=== PATIENT | male | born 1965 | race Caucasian/White ===

== ENCOUNTER 2017-09-22 03:21 | Emergency (ER) | payer OTHER ==
[2017-09-22] MEDS ORDERED: ACETAMINOPHEN TAB 500 MG TAB PO STA (03:40)
[2017-09-22] MEDS ORDERED: DEXAMETHASONE SOD PHOSPHATE 10 MG/ML 1 ML VIAL IV STA (03:42)
[2017-09-22] MEDS ORDERED: fentaNYL (PF) 50 MCG/ML 2 ML AMP IV PRN (03:43)
--- NOTE | 2017-09-22 03:47 | ED ---
Back Pain HPI - General Chief Complaint: Back Pain/Injury Stated Complaint: back pain Time Seen by Provider: 09/22/17 03:32 Source: patient Limitations: no limitations - History of Present Illness Initial Comments: 51 years old male he was at work and he is trying to move things around in the cooler been over to lift heavy object that triggered the pain on the right lower back it travels down his [place] to the posterior right proximal thigh. He denies any fall or any trauma he denies any chronic back problem he denies any loss of control of bowels or bladder function. Headaches no chest pain or shortness of breath no abdominal pain no frequency urgency dysuria no weakness of her lower extremities - Related Data Home Medications Medication Instructions Recorded Confirmed Albuterol Inhaler [Ventolin 1 - 2 puff INHALATION Q6HR PRN 04/06/15 09/22/17 Inhaler] Previous Rx's Medication Instructions Recorded oxyCODONE HCL/ACETAMINOPHEN 1 tab PO Q6HR PRN #10 tab 09/22/17 [Percocet 5-325 mg] predniSONE 50 mg PO DAILY #5 tablet 09/22/17 Allergies Allergy/AdvReac Type Severity Reaction Status Date / Time codeine Allergy Nausea & Verified 09/22/17 03:30 Vomiting erythromycin base Allergy Nausea & Verified 09/22/17 03:30 [Erythromycin Base] Vomiting-Hives levofloxacin Allergy Nausea & Verified 09/22/17 03:30 Vomiting & Hives naproxen Allergy Nausea & Verified 09/22/17 03:30 Vomiting Review of Systems ROS Statement: Those systems with pertinent positive or pertinent negative responses have been documented in the HPI. ROS Other: All systems not noted in ROS Statement are negative. Past Medical History Past Medical History: Asthma Additional Past Medical History / Comment(s): Liver nodule found on 03/25/2014 by surgeon- still watching- see MRI done 02/2015, pt states MRI done 2014- shows cyst on lt kidney, loose stools 5-6 x a day-umbilical hernia, History of Any Multi-Drug Resistant Organisms: None Reported Past Surgical History: Appendectomy, Hernia Repair, Orthopedic Surgery Additional Past Surgical History / Comment(s): Hernia x 2 -abdominal- states has mesh in, CTR Lt Wrist & cyst removed also, COLONOSCOPY AND EGD 04/08/15 Past Anesthesia/Blood Transfusion Reactions: Postoperative Nausea & Vomiting ( PONV) Past Psychological History: No Psychological Hx Reported Smoking Status: Current every day smoker Past Alcohol Use History: Occasional Past Drug Use History: None Reported - Past Family History Father Family Medical History: Diabetes Mellitus Mother History Unknown: Yes General Exam - General Exam Comments Initial Comments: General: The patient is awake and he is in was moderate to severe distress Skin: Skin is warm and dry and no rashes or lesions are noted. Eye: Pupils are equal, round and reactive to light, extra-ocular movements are intact; there is normal conjunctiva bilaterally. Ears, nose, mouth and throat: There are moist mucous membranes and no oral lesions. Neck: The neck is supple, there is no tenderness or JVD. Cardiovascular: There is a regular rate and rhythm. No murmur, rub or gallop is appreciated. Respiratory: To auscultation bilateral, no wheezing no rhonchi no distress respiratory landry noticed Gastrointestinal: Soft, non-distended, non-tender abdomen without masses or organomegaly noted. There is no rebound or guarding present. Bowel sounds are unremarkable. Back: There is tenderness over the L4 and L5 as well as on the right paraspinal area is unable to lay down to do the straight leg raise test at this point in deep tendon reflexes are within normal range Musculoskeletal: Normal ROM, no tenderness, There is no pedal edema. There is no calf tenderness or swelling. No cords were appreciated. Neurological: CN II-XII intact, Cranial nerves III through XII are intact. There are no obvious motor or sensory deficits. Coordination appears grossly intact. Speech is normal. Psychiatric: Cooperative, appropriate mood & affect, normal judgment. Limitations: no limitations Course Vital Signs 09/22/17 03:27 Temperature 98.3 F Pulse Rate 80 Respiratory 18 Rate Blood Pressure 161/90 O2 Sat by Pulse 100 Oximetry Patient is reassessed at term 5:50 AM, he feels lot better he is able to ambulate he is able to lay down or standing up he be gone home mom and now Percocets he is ALLERGIC to codeine and Naprosyn considering litzy is not a candidate for [place] as well as Motrin I gave him some prednisone 50 mg daily for next 5 days, education and counseling was done to not to bend over to heavy lifting pushing or pulling instead use the knees Disposition Clinical Impression: Back pain Disposition: HOME SELF-CARE Condition: Good Additional Instructions: Follow-up with the Dr. Duke Archer in next one or 2 days or return to the ER if symptoms get worse Prescriptions: oxyCODONE HCL/ACETAMINOPHEN [Percocet 5-325 mg] 1 tab PO Q6HR PRN #10 tab PRN Reason: Pain predniSONE 50 mg PO DAILY #5 tablet Is patient prescribed a controlled substance at d/c from ED?: Yes If prescribed controlled substance>3 days was MAPS reviewed?: No When asked, does pt state using other controlled substances?: No Referrals: None,Stated [Primary Care Provider] - 1-2 days
--- NOTE | 2017-09-22 04:51 | XR ---
EXAM: XR Lumbar Spine, 4 or 5 Views CLINICAL HISTORY: ITS.REASON XR Reason: Pain TECHNIQUE: Frontal, lateral and oblique views of the lumbar spine. COMPARISON: No relevant prior studies available. FINDINGS: Vertebrae: Mild endplate changes at L3-S1. No acute fracture. Normal alignment. Disc spaces: See above. Mild narrowing of the L4-5 and L5-S1 disc space Soft tissues: Unremarkable. IMPRESSION: No acute bony abnormality. Mild lumbar spondylosis
[2017-09-22 06:22] VITALS: BP 148/83; PULSE 98; RESP 16; TEMP 98.1
== END 2017-09-22 06:21 | disposition home or self-care (01) ==
LOC: EC 03:21
DX: M54.5 Low back pain (principal); F17.200 Nicotine dependence, unspecified, uncomplicated; Z88.5 Allergy status to narcotic agent; Z88.1 Allergy status to other antibiotic agents; Z88.6 Allergy status to analgesic agent
CPT/HCPCS: 72110; 99283; 96374; 96375; J1100; J3010

== ENCOUNTER 2018-10-26 21:24 | Emergency (ER) | payer OTHER ==
[2018-10-26 21:32] VITALS: RESP 18
[2018-10-26 22:27] LABS: Basophils # (A) 0.1 k/uL (0-0.2); Basophils % (A) 1 %; Eosinophils # (A) 0.3 k/uL (0-0.7); Eosinophils % (A) 2 %; HCT 51.7 % (39.0-53.0); HGB 16.7 gm/dL (13.0-17.5); Lymphocytes # (A) 2.9 k/uL (1.0-4.8); Lymphocytes % (A) 23 %; MCH 30.7 pg (25.0-35.0); MCHC 32.3 g/dL (31.0-37.0); MCV 95.1 fL (80.0-100.0); Mean Platelet Volume 8.3; Monocytes # (A) 0.7 k/uL (0-1.0); Monocytes % (A) 5 %; Neutrophils # (A) 8.6 k/uL (1.3-7.7); Neutrophils % (A) 68 %; Platelet Count 244 k/uL (150-450); RBC 5.44 m/uL (4.30-5.90); RDW 12.7 % (11.5-15.5); WBC 12.6 k/uL (3.8-10.6)
--- NOTE | 2018-10-26 22:27 | ED ---
Chest Pain HPI - General Chief Complaint: Chest Pain Stated Complaint: Chest pain Time Seen by Provider: 10/26/18 21:38 Source: patient Mode of arrival: ambulatory Limitations: no limitations - History of Present Illness Initial Comments: This patient is a 53-year-old man who presents to be evaluated for pain near the left axilla that seems to radiate to his left arm. The patient states this been going on for a week, and he was seen at the [facility] in [place] for this same issue nearly a week ago. He states that they told him that it was not his heart and given medication but the pain has not improved. The patient states that the pain is constant, aching, moderate intensity. He states that it is relieved if he raises his left arm above his head. The pain is somewhat worse if he rests the arm down by his side. The patient has not had any anginal symptoms coming. No dyspnea, diaphoresis, nausea or vomiting, palpitations, lightheadedness or syncope. The patient states that it feels like he pinched a nerve. MD Complaint: chest pain Onset/Timin -: week(s) Onset: during rest Pain Location: left chest Pain Radiation: LUE Severity: moderate Quality: aching Consistency: constant Improves With: other (Putting his arm above his head) Worsens With: other (Lowering his arm against the side) Treatments Prior to Arrival: none - Related Data Home Medications Medication Instructions Recorded Confirmed Aspirin/Acetaminophen/Caffeine 1 - 2 tab PO DAILY PRN 10/26/18 10/26/18 [Excedrin Migraine Caplet] Allergies Allergy/AdvReac Type Severity Reaction Status Date / Time codeine Allergy Nausea & Verified 10/26/18 22:27 Vomiting erythromycin base Allergy Nausea & Verified 10/26/18 22:27 [Erythromycin Base] Vomiting-Hives ketorolac [From Toradol] Allergy Swelling Verified 10/26/18 22:27 levofloxacin Allergy Nausea & Verified 10/26/18 22:27 Vomiting & Hives naproxen Allergy Nausea & Verified 10/26/18 22:27 Vomiting Review of Systems ROS Statement: Those systems with pertinent positive or pertinent negative responses have been documented in the HPI. ROS Other: All systems not noted in ROS Statement are negative. Constitutional: Denies: fever, chills Respiratory: Denies: cough, dyspnea Cardiovascular: Reports: as per HPI, chest pain. Denies: palpitations, orthopnea, edema, syncope Gastrointestinal: Denies: abdominal pain, nausea, vomiting Genitourinary: Denies: dysuria, hematuria Musculoskeletal: Denies: back pain, joint swelling, arthralgia Skin: Denies: rash Neurological: Denies: headache, weakness, numbness, paresthesias EKG Findings - EKG Results: EKG: interpreted by ELVIS VARGAS, sinus rhythm (Rate 80 bpm), normal axis, normal QRS, normal ST/T, no acute changes - KS, Pacemaker, Normal: Normal tracing: normal tracing Past Medical History Past Medical History: Asthma Additional Past Medical History / Comment(s): Liver nodule found on 03/25/2014 by surgeon- still watching- see MRI done 02/2015, pt states MRI done 2014- shows cyst on lt kidney, loose stools 5-6 x a day-umbilical hernia, History of Any Multi-Drug Resistant Organisms: None Reported Past Surgical History: Appendectomy, Hernia Repair, Orthopedic Surgery Additional Past Surgical History / Comment(s): Hernia x 2 -abdominal- states has mesh in, CTR Lt Wrist & cyst removed also, COLONOSCOPY AND EGD 04/08/15 Past Anesthesia/Blood Transfusion Reactions: Postoperative Nausea & Vomiting (PONV) Past Psychological History: No Psychological Hx Reported Smoking Status: Current every day smoker Past Alcohol Use History: Occasional Past Drug Use History: None Reported - Past Family History Father Family Medical History: Diabetes Mellitus Mother History Unknown: Yes General Exam Limitations: no limitations General appearance: alert, in no apparent distress Head exam: Present: atraumatic, normocephalic Eye exam: Present: normal appearance. Absent: scleral icterus, conjunctival injection ENT exam: Present: normal oropharynx Neck exam: Present: normal inspection, full ROM. Absent: tenderness, meningismus Respiratory exam: Present: normal lung sounds bilaterally, chest wall tenderness (At the anterior border of the left axilla). Absent: respiratory distress, wheezes, rales, rhonchi, stridor Cardiovascular Exam: Present: regular rate, normal rhythm, normal heart sounds. Absent: systolic murmur, diastolic murmur, rubs, gallop GI/Abdominal exam: Present: soft. Absent: distended, tenderness, guarding, rebound, rigid, mass Extremities exam: Present: normal inspection, normal capillary refill. Absent: pedal edema, calf tenderness Back exam: Present: normal inspection. Absent: vertebral tenderness Neurological exam: Present: alert. Absent: motor sensory deficit Skin exam: Present: warm, dry, intact, normal color. Absent: rash Course Vital Signs 10/26/18 10/26/18 21:28 22:30 Temperature 97.1 F L Pulse Rate 90 72 Respiratory 18 18 Rate Blood Pressure 135/82 123/81 O2 Sat by Pulse 100 96 Oximetry Chest Pain MDM - [facility] Patient's 53-year-old man with somewhat atypical left-sided axilla/chest pain. The symptoms are somewhat reproducible with palpation in the chest wall at the axillary margin. Also relieved with position. As a precaution, initial cardiac workup is negative, and given that the duration of symptoms is been approximately one week suspect that there would be elevated troponin were some EKG changes accompanying cardiac source. Even in consideration of this, I did offer to admit patient for cardiology consultation and further evaluation, the patient declines. He does agree to follow-up with cardiology as outpatient. Does agree to return for other symptoms and we discussed return parameters. Disposition Clinical Impression: Chest pain Disposition: HOME SELF-CARE Condition: Good Instructions (If sedation given, give patient instructions): Chest Pain (ED) Additional Instructions: This we discussed, follow-up with the follow-up physicians. Return should any of the symptoms we discussed develop. Is patient prescribed a controlled substance at d/c from ED?: No Referrals: Duke Archer MD [Primary Care Provider] - 1-2 days Willam Becker MD [STAFF PHYSICIAN] - 1-2 days Godfrey Liang MD [STAFF PHYSICIAN] - 1-2 days
[2018-10-26 22:36] LABS: Partial Thromboplastin Time 26.5 sec (22.0-30.0); Prothrombin Time 10.3 sec (9.0-12.0)
[2018-10-26 22:37] LABS: Albumin 4.5 g/dL (3.5-5.0); Calcium 9.7 mg/dL (8.4-10.2); Total Bilirubin 0.6 mg/dL (0.2-1.3); Total Protein 7.8 g/dL (6.3-8.2)
[2018-10-26 22:49] LABS: Amylase 49 U/L (30-110); Lipase 24 U/L (23-300)
[2018-10-26 22:57] LABS: Potassium 4.4 mmol/L (3.5-5.1)
--- NOTE | 2018-10-26 23:29 | XR ---
EXAM: XR Chest, 2 Views CLINICAL HISTORY: ITS.REASON XR Reason: Pain TECHNIQUE: Frontal and lateral views of the chest. COMPARISON: 10/07/15 x-ray IMPRESSION: Normal heart size. No consolidation or pleural effusion.
[2018-10-27 00:42] VITALS: BP 129/72; PULSE 73; TEMP 98.5
== END 2018-10-27 00:43 | disposition home or self-care (01) ==
LOC: EC 21:24
DX: R07.89 Other chest pain (principal); F17.200 Nicotine dependence, unspecified, uncomplicated; Z53.29 Procedure and treatment not carried out because of patient's decision for other reasons; Z88.1 Allergy status to other antibiotic agents; Z88.5 Allergy status to narcotic agent; Z88.6 Allergy status to analgesic agent
CPT/HCPCS: 36415; 71046; 80053; 82150; 83690; 84484; 85025; 85379; 85610; 85730; 93005; 99285

== ENCOUNTER → 2018-11-13 | Outpatient (CLI) | payer OTHER ==
--- NOTE | 2018-11-13 23:01 | MR ---
MRI CERVICAL SPINE: CLINICAL HISTORY: Neck pain per order. Headache with neck pain for 5 weeks causing pain and weakness into left arm and fingers for patient. TECHNIQUE: Multiplanar, multisequence imaging of the cervical spine is performed without IV contrast. COMPARISON: Cervical spine x-ray October 07, 2015. FINDINGS: Sagittal images of the cervical spine show the craniocervical junction to appear within nor mal limits. The cervical and upper thoracic spinal cord is normal in course, caliber, and signal. Th ere is slight grade 1 retrolisthesis of C5 on C6. The vertebral body heights are normal. There is mi ld to moderate disc space narrowing C5-C6 and C6-C7 levels posterior disc herniations appreciated on sagittal images. The bone marrow signal intensity is within normal limits in cervical spine. Area of low T1 and T2 signal superior T2 vertebra is presumed benign, can be correlated with plain films is d esired. Suspect sclerosis. Axial images show C2-C3 and C3-C4 level to appear within normal limits. Axial images at the C4-C5 level show left foraminal disc protrusion causing moderate to advanced left -sided neural foraminal narrowing axial image 33. Axial images at the C5-C6 level show broad-based right paracentral/foraminal disc protrusion facing a nterolaterally thecal sac and causing moderate to advanced right-sided neural foraminal narrowing. Axial images at the C6-C7 levels with broad-based posterior disc protrusion effacing anterior thecal sac and causing moderate to advanced bilateral neural foraminal narrowing. Axial images at C7-T1 level are felt within normal limits. IMPRESSION: Multilevel degenerative changes in the cervical spine C4-C5 through C6-C7 levels as joséai led above.
== END | disposition home or self-care (01) ==
LOC: RADMRIMAIN 15:45
PROVIDERS: ATTEND Psychiatry & Neurology Neurology
DX: M47.812 Spondylosis without myelopathy or radiculopathy, cervical region (principal)
CPT/HCPCS: 72141

== ENCOUNTER → 2019-11-17 | Outpatient (CLI) | payer MEDICARE, OTHER ==
--- NOTE | 2019-11-17 10:50 | CT ---
EXAMINATION TYPE: CT abdomen pelvis w con DATE OF EXAM: 11/17/2019 COMPARISON: CT abdomen and pelvis February 09, 2015 HISTORY: Abdominal and pelvic pain CT DLP: 2622.6 mGycm, Automated Exposure Control for Dose Reduction was Utilized. CONTRAST: CT scan of the abdomen and pelvis is performed with oral and with IV Contrast, patient injected with 100 mL of Isovue 300. FINDINGS: LUNG BASES: New Left basilar linear atelectasis. LIVER/GB: Slightly more prominent 1.9 x 1.4 cm hyperechoic area right hepatic lobe that becomes isode nse on delayed phase images. Nonspecific lesion favoring FNH versus hepatic adenoma. PANCREAS: Moderate to severe generalized fat replaced atrophy redemonstrated. SPLEEN: No significant abnormality is seen. ADRENALS: No significant abnormality is seen. KIDNEYS: Symmetric cartilage of the uptake and excretion with partially duplicated left-sided collect ing systems but no duplicated ureters. Persistent simple appearing thin-walled cyst posteriorly measu ring 2.6 x 2.2 cm axial image 40 at the mid Pole level. Occasional subcentimeter hypodense lesions sc attered throughout the right kidney redemonstrated. BOWEL: Oral contrast does not reach level of terminal ileum making evaluation of distal bowel slightl y suboptimal. Stomach is poorly distended and thus suboptimally evaluated. No suspicious small or lar ge bowel dilatation is seen. A few scattered diverticula in the distal left colon. More prominent div erticulosis in the proximal to mid sigmoid colon near some level of the anterior left pelvic zachery. There is new mild to moderate ill-defined fluid and fat stranding in the central pelvis. No well-for med fluid collection or drainable abscess. No pneumoperitoneum. PROSTATE/SEMINAL VESICLES: No gross abnormality seen. LYMPH NODES: No new greater than 1cm abdominal or pelvic lymph nodes are appreciated. Persistent lef t pelvic surgical clips with anterior left pelvic 2.1 x 1.2 cm hypoechoic area favoring small postsur gical fluid collection or seroma axial image 83 not significantly changed from 2015 study OSSEOUS STRUCTURES: No significant abnormality is seen. OTHER: Small to moderate-sized periumbilical hernia is decreased in size from prior. IMPRESSION: New mild to moderate uncomplicated acute mid sigmoid diverticulitis centered in the centr al mid pelvis. Results of study called to ordering nurse practitioner via telephone at time of dictation.
== END | disposition home or self-care (01) ==
LOC: RADCTMAIN 07:52
PROVIDERS: ATTEND Nurse Practitioner Family
DX: K57.32 Diverticulitis of large intestine without perforation or abscess without bleeding (principal); Z88.5 Allergy status to narcotic agent; Z88.1 Allergy status to other antibiotic agents
CPT/HCPCS: 74177; Q9967

== ENCOUNTER → 2019-12-16 | Outpatient (CLI) | payer MEDICARE, OTHER ==
--- NOTE | 2019-12-16 07:38 | US ---
EXAMINATION TYPE: US pelvic limited DATE OF EXAM: 12/16/2019 COMPARISON: CT [place] 2019. CLINICAL HISTORY: R10.2 PELVIC PAIN. (Male Pt) Pt states pelvic pain, more at LLQ TECHNIQUE: Transabdominal (TA). Transabdominal sonographic images of the pelvis were acquired. Bladder appeared wnl without intraluminal mass or wall thickening. Suboptimal distention noted. Rt and Lt lower quadrants scanned, LLQ scanned with valsalva maneuver at area of pt's pain/ No abnorm ality could be appreciated to account for pt's painleft groin surgical clips noted on recent CT. No new or recurrent hernia identified on CT or dynamic ultrasound. IMPRESSION: As above.
== END | disposition home or self-care (01) ==
LOC: RADUSWWP 07:02
PROVIDERS: ATTEND Internal Medicine
DX: N32.89 Other specified disorders of bladder (principal); Z98.890 Other specified postprocedural states
CPT/HCPCS: 76857

== ENCOUNTER → 2020-10-04 | Outpatient (CLI) | payer MEDICARE, OTHER ==
--- NOTE | 2020-10-04 10:21 | US ---
EXAMINATION TYPE: US scrotum with doppler. Grayscale and color Doppler Duplex imaging performed of aleisha salazar scrotum. DATE OF EXAM: 10/04/2020 COMPARISON: NONE CLINICAL HISTORY: N43.0 Encysted hydrocele, R35.1 Nocturia,N40.1. Hydrocele EXAM MEASUREMENTS: TESTICLES: Right Testicle: 4.1 x 2.3 x 3.1 cm Left Testicle: 3.9 x 2.0 x 3.3 cm EPIDIDYMIS HEAD: Right Epididymis: .5 x .8 x .7 cm Left Epididymis: .9 x .8 x 1.0 cm a few subcentimeter cystic areas seen. Doppler performed to assess for testicular vascularity; good bilateral color flow and waveforms are s een. There is no evidence of testicular torsion. Presence of hydroceles: no Presence of varicoceles: no IMPRESSION: 1. Epididymal left-sided cysts. 2. No diagnostic evidence of hydrocele.
--- NOTE | 2020-10-05 07:16 | US ---
EXAMINATION TYPE: US prostate transrectal DATE OF EXAM: 10/04/2020 COMPARISON: NONE CLINICAL HISTORY: N43.0 Encysted hydrocele, R35.1 Nocturia,N40.1. BPH This examination was performed using the transrectal probe. EXAM MEASUREMENTS: Gland Size: 4.9 x2.8 x 4.9 cm Volume: 35.2 Predicted PSA: 4.2 Actual PSA (if available):Not available The prostate gland is homogeneous. No solid or cystic masses seen. Peripheral zone is unremarkable. S eminal vesicles are symmetric and within normal limits. IMPRESSION: Mild prostate glandular enlargement. No suspicious lesion identified. Correlate predicted PSA with ac tual PSA which is not available at this time. Predicted PSA = volume x 0.12 ng/ml Calculated Volume = 0.5236 x L x W x H
== END | disposition home or self-care (01) ==
LOC: RADUSWWP 09:27
PROVIDERS: ATTEND Urology
DX: N50.3 Cyst of epididymis (principal); N40.0 Benign prostatic hyperplasia without lower urinary tract symptoms
CPT/HCPCS: 76870; 76872; 93975

== ENCOUNTER 2021-09-03 02:33 | Emergency (ER) | payer MEDICARE ==
[2021-09-03 02:43] LABS: Glucose,Whole Blood 119 mg/dL (75-99)
[2021-09-03 02:45] VITALS: BP 132/88; PULSE 87; RESP 20; TEMP 97.9
== END 2021-09-03 03:31 | disposition left against medical advice (07) ==
LOC: EC 02:33
DX: Z53.21 Procedure and treatment not carried out due to patient leaving prior to being seen by health care provider (principal); R73.09 Other abnormal glucose
CPT/HCPCS: 36415; 99499

== ENCOUNTER 2021-09-14 14:20 | Emergency (ER) | payer MEDICARE, OTHER ==
[2021-09-14 14:26] VITALS: RESP 18
[2021-09-14] MEDS ORDERED: PROPARACAINE 0.5% OPHTH DROPS 15 ML BTL RIGHT EYE STA (16:13)
[2021-09-14] MEDS ORDERED: FLUORESCEIN STRIPS 1 MG STRIP RIGHT EYE ONE (16:14)
[2021-09-14] MEDS ORDERED: ONDANSETRON ODT 4 MG TAB PO STA (16:43)
[2021-09-14] MEDS ORDERED: HYDROcodone/APAP 7.5-325MG 1 EACH TAB PO ONE (16:43)
--- NOTE | 2021-09-14 17:33 | ED ---
Eye Problem HPI - General Chief complaint: Eye Problems Stated complaint: R eye issues Time Seen by Provider: 09/14/21 15:32 Source: patient Mode of arrival: ambulatory Limitations: no limitations - History of Present Illness Initial comments: 55-year-old male with past medical history of diabetes presents emergency department from Dr. Carcamo's office. Patient was seen at [facility] on September 03 and diagnosed with shingles in the v1 distribution. The patient was started on acyclovir here however he states he can only tolerate 4 days worth of the medication as it made him feel nauseated. 4 days ago the patient's began suffering from double vision. He wanted Dr. Valdez's office today for evaluation of this. Dr. Valdez was concerned for ocular involvement of the shingles and therefore sent him directly over to the hospital. Patient states that he is able to see when he lays down. When he sits up, he reports seeing triple of everything. He denies any headache, neck pain, fevers or chills. No ocular pain. No reported confusion from family members. No other alleviating, precipitating or modifying factors - Related Data Home Medications Medication Instructions Recorded Confirmed HYDROcodone/APAP 5-325MG [[place] 1 tab PO Q6H PRN MDD 4 tabs 09/14/21 09/14/21 5-325] Omeprazole [PriLOSEC] 20 mg PO DAILY 09/14/21 09/14/21 Sildenafil Citrate [Sildenafil] 40 - 60 mg PO DAILY PRN MDD 60mg 09/14/21 09/14/21 Allergies Allergy/AdvReac Type Severity Reaction Status Date / Time codeine Allergy Nausea & Verified 09/14/21 17:01 Vomiting erythromycin base Allergy Nausea & Verified 09/14/21 17:01 [Erythromycin Base] Vomiting-Hives ketorolac [From Toradol] Allergy Swelling Verified 09/14/21 17:01 levofloxacin Allergy Nausea & Verified 09/14/21 17:01 Vomiting & Hives naproxen Allergy Nausea & Verified 09/14/21 17:01 Vomiting Review of Systems ROS Statement: Those systems with pertinent positive or pertinent negative responses have been documented in the HPI. ROS Other: All systems not noted in ROS Statement are negative. Past Medical History Past Medical History: Asthma, Diabetes Mellitus Additional Past Medical History / Comment(s): Liver nodule found on 03/25/2014 by surgeon- still watching- see MRI done 02/2015, pt states MRI done 2014- shows cyst on lt kidney, loose stools 5-6 x a day-umbilical,hernia, Shingles - 2021 History of Any Multi-Drug Resistant Organisms: None Reported Past Surgical History: Appendectomy, Hernia Repair, Orthopedic Surgery Additional Past Surgical History / Comment(s): Hernia x 2 -abdominal- states has mesh in, CTR Lt Wrist & cyst removed also, COLONOSCOPY AND EGD 04/08/15 Past Anesthesia/Blood Transfusion Reactions: Postoperative Nausea & Vomiting (PONV) Past Psychological History: No Psychological Hx Reported Smoking Status: Current every day smoker Past Alcohol Use History: Occasional Past Drug Use History: None Reported - Past Family History Father Family Medical History: Diabetes Mellitus Mother History Unknown: Yes General Exam Limitations: no limitations General appearance: alert, in no apparent distress Head exam: Present: atraumatic, normocephalic, normal inspection Eye exam: Present: PERRL, other (lateral rectus palsy of the right eye). Absent: scleral icterus, conjunctival injection, periorbital swelling, periorbital tenderness Pupils: Present: other (no dendritic lesions) ENT exam: Present: normal exam, mucous membranes moist Neck exam: Present: normal inspection. Absent: tenderness, meningismus, lymphadenopathy Respiratory exam: Present: normal lung sounds bilaterally. Absent: respiratory distress, wheezes, rales, rhonchi, stridor Cardiovascular Exam: Present: regular rate, normal rhythm, normal heart sounds. Absent: systolic murmur, diastolic murmur, rubs, gallop, clicks GI/Abdominal exam: Present: soft, normal bowel sounds. Absent: distended, tenderness, guarding, rebound, rigid Extremities exam: Present: normal inspection, full ROM, normal capillary refill. Absent: tenderness, pedal edema, joint swelling, calf tenderness Back exam: Present: normal inspection Neurological exam: Present: alert, oriented X3, CN II-XII intact Psychiatric exam: Present: normal affect, normal mood Skin exam: Present: warm, dry, intact, normal color. Absent: rash Course Vital Signs 09/14/21 09/14/21 14:22 17:45 Temperature 97.6 F 97.2 F L Pulse Rate 95 82 Respiratory 18 18 Rate Blood Pressure 136/91 132/72 O2 Sat by Pulse 98 98 Oximetry Medical Decision Making - Medical Decision Making Upon arrival patient is placed into room 17. A thorough history and physical exam was performed. Visual acuity is performed and vision is 20/40 in both eyes, 20/40 in the affected eye and 20/30 in the left eye. Patient does have notable lateral rectus palsy. Patient's eye is stained with fluorescein after proparacaine administration. No dendritic lesions are appreciated. I did call and speak with Dr. Ruiz in regards to the patient's symptoms. He recommends that the patient go over to his office at this time for evaluation. Patient agreed to this treatment. He is informed that if Dr. Ruiz is concerned, he may be sent back to the hospital for further workup. Patient agreed to this. Instructed to go straight to his office without stopping. Patient discharged in stable condition Disposition Clinical Impression: Lateral rectus palsy, Visual disturbance Disposition: HOME SELF-CARE Condition: Stable Instructions (If sedation given, give patient instructions): Blurred Vision (ED) Additional Instructions: Go directly to Dr. Ruiz's office now. Do not go home. He will evaluate your and determine whether he can treat it or if you need to come back to the hospital. [facility] [place] [address] Is patient prescribed a controlled substance at d/c from ED?: No Referrals: Rolando Harris MD [Primary Care Provider] - 1-2 days Paul Ruiz MD [STAFF PHYSICIAN] - 1-2 days Time of Disposition: 17:30
[2021-09-14 17:46] VITALS: BP 132/72; PULSE 82; TEMP 97.2
== END 2021-09-14 17:45 | disposition home or self-care (01) ==
LOC: EC 14:20
DX: H49.9 Unspecified paralytic strabismus (principal); H53.9 Unspecified visual disturbance; J45.909 Unspecified asthma, uncomplicated; E11.9 Type 2 diabetes mellitus without complications; F17.200 Nicotine dependence, unspecified, uncomplicated; Z88.5 Allergy status to narcotic agent; Z88.1 Allergy status to other antibiotic agents; Z88.6 Allergy status to analgesic agent
CPT/HCPCS: 99283

== ENCOUNTER 2021-09-26 17:48 | Inpatient (IN) | payer MEDICARE, OTHER ==
[2021-09-26] MEDS ORDERED: methylPREDNISolone SOD SUCCI 125 MG/2 ML VIAL IV STA (20:11)
[2021-09-26 20:43] LABS: Basophils # (A) 0.1 k/uL (0-0.2); Basophils % (A) 1 %; Eosinophils # (A) 0.3 k/uL (0-0.7); Eosinophils % (A) 2 %; HCT 49.2 % (39.0-53.0); Lymphocytes # (A) 3.1 k/uL (1.0-4.8); Lymphocytes % (A) 25 %; MCH 30.9 pg (25.0-35.0); MCHC 32.4 g/dL (31.0-37.0); MCV 95.3 fL (80.0-100.0); Monocytes # (A) 0.6 k/uL (0-1.0); Monocytes % (A) 5 %; Neutrophils # (A) 8.1 k/uL (1.3-7.7); Neutrophils % (A) 66 %; Platelet Count 279 k/uL (150-450); RBC 5.17 m/uL (4.30-5.90); RDW 12.8 % (11.5-15.5); WBC 12.3 k/uL (3.8-10.6)
[2021-09-26 20:57] LABS: Albumin 4.3 g/dL (3.5-5.0); Calcium 9.4 mg/dL (8.4-10.2); Potassium 4.6 mmol/L (3.5-5.1); Total Bilirubin 0.7 mg/dL (0.2-1.3); Total Protein 7.7 g/dL (6.3-8.2)
[2021-09-26] MEDS ORDERED: ACETAMINOPHEN TAB 325 MG TAB PO PRN (21:37)
[2021-09-26] MEDS ORDERED: ONDANSETRON 4 MG/2 ML VIAL IVP PRN (21:37)
[2021-09-26] MEDS ORDERED: NALOXONE 0.4 MG/ML 1 ML VIAL IV PRN (21:37)
[2021-09-26] MEDS: ACYCLOVIR SODIUM 950 MG in SODIUM CHLORIDE 0.9% 250 ML IV SCH (21:41)
--- NOTE | 2021-09-26 21:42 | ED ---
Eye Problem HPI - General Chief complaint: Eye Problems Stated complaint: Right Eye Problems Time Seen by Provider: 09/26/21 19:54 Source: patient, RN notes reviewed Mode of arrival: ambulatory Limitations: no limitations - History of Present Illness Initial comments: This is a 55-year-old male who presents to the emergency department for shingles in the right eye. 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 New, for admission to be treated with IV steroids and antiviral medication. Symptoms have been present for 3 weeks and he is noted to have a sixth nerve palsy. Patient denies any blurry vision at this time. MD chief complaint: eye pain Onset/Timin -: week(s) Location: right eye - Related Data Home Medications Medication Instructions Recorded Confirmed HYDROcodone/APAP 5-325MG [[place] 1 tab PO Q6H PRN MDD 4 tabs 09/14/21 09/26/21 5-325] Omeprazole [PriLOSEC] 20 mg PO DAILY 09/14/21 09/26/21 Sildenafil Citrate [Sildenafil] 40 - 60 mg PO DAILY PRN MDD 60mg 09/14/21 09/26/21 Gabapentin [Neurontin] 100 mg PO HS 09/26/21 09/26/21 Allergies Allergy/AdvReac Type Severity Reaction Status Date / Time erythromycin base Allergy Nausea & Verified 09/26/21 22:02 [Erythromycin Base] Vomiting-Hives ketorolac [From Toradol] Allergy Swelling Verified 09/26/21 22:02 codeine AdvReac Nausea & Verified 09/26/21 22:02 Vomiting famciclovir AdvReac Nausea & Verified 09/26/21 22:02 Vomiting & Diarrhea levofloxacin AdvReac Nausea & Verified 09/26/21 22:02 Vomiting & Hives naproxen AdvReac Nausea & Verified 09/26/21 22:02 Vomiting Review of Systems ROS Statement: Those systems with pertinent positive or pertinent negative responses have been documented in the HPI. ROS Other: All systems not noted in ROS Statement are negative. Constitutional: Denies: fever, chills Eyes: Reports: eye pain. Denies: vision change ENT: Denies: ear pain, throat pain Respiratory: Denies: cough, dyspnea Cardiovascular: Denies: chest pain, palpitations Gastrointestinal: Denies: abdominal pain, nausea, vomiting, diarrhea Genitourinary: Denies: urgency, dysuria Musculoskeletal: Denies: back pain Neurological: Denies: headache Past Medical History Past Medical History: Asthma, Diabetes Mellitus Additional Past Medical History / Comment(s): Liver nodule found on 03/25/2014 by surgeon- still watching- see MRI done 02/2015, pt states MRI done 2014- shows cyst on lt kidney, loose stools 5-6 x a day-umbilical,hernia, Shingles - 2021 History of Any Multi-Drug Resistant Organisms: None Reported Past Surgical History: Appendectomy, Hernia Repair, Orthopedic Surgery Additional Past Surgical History / Comment(s): Hernia x 2 -abdominal- states has mesh in, CTR Lt Wrist & cyst removed also, COLONOSCOPY AND EGD 04/08/15 Past Anesthesia/Blood Transfusion Reactions: Postoperative Nausea & Vomiting (PONV) Past Psychological History: No Psychological Hx Reported Smoking Status: Current every day smoker Past Alcohol Use History: Occasional Past Drug Use History: None Reported - Past Family History Father Family Medical History: Diabetes Mellitus Mother History Unknown: Yes General Exam Limitations: no limitations General appearance: alert, in no apparent distress Head exam: Present: atraumatic, normocephalic, normal inspection Eye exam: Present: other (No abduction of the right eye, consistent with 6th nerve palsy.) ENT exam: Present: other (Few scattered erythematous vesicles encroaching on the right lateral aspect of the nose.) Respiratory exam: Present: normal lung sounds bilaterally. Absent: respiratory distress, wheezes, rales, rhonchi, stridor Cardiovascular Exam: Present: regular rate, normal rhythm, normal heart sounds. Absent: systolic murmur, diastolic murmur, rubs, gallop, clicks Neurological exam: Present: alert, oriented X3, CN II-XII intact Psychiatric exam: Present: normal affect, normal mood Skin exam: Present: warm, dry, intact Course Vital Signs 09/26/21 09/26/21 17:51 23:00 Temperature 98.0 F Pulse Rate 89 74 Respiratory 16 18 Rate Blood Pressure 135/90 116/68 O2 Sat by Pulse 97 94 L Oximetry Medical Decision Making - Medical Decision Making This is a 55-year-old male who presents to the emergency department with herpes zoster ophthalmicus. Patient started on IV acyclovir and IV Solu-Medrol. Prednisolone acetate eyedrops 4 times a day also initiated. Will plan to admit patient for continued IV treatment per the recommendation of ophthalmology. This case was discussed in detail with the attending ED physician. Presentation, findings, and treatment plan discussed in detail as well. - Lab Data Result diagrams: 09/26/21 20:36 09/26/21 20:36 Lab Results 09/26/21 09/26/21 Range/Units 20:36 20:36 WBC 12.3 H (3.8-10.6) k/uL RBC 5.17 (4.30-5.90) m/uL Hgb 16.0 (13.0-17.5) gm/dL Hct 49.2 (39.0-53.0) % MCV 95.3 (80.0-100.0) fL MCH 30.9 (25.0-35.0) pg MCHC 32.4 (31.0-37.0) g/dL RDW 12.8 (11.5-15.5) % Plt Count 279 (150-450) k/uL MPV 8.0 Neutrophils % 66 % Lymphocytes % 25 % Monocytes % 5 % Eosinophils % 2 % Basophils % 1 % Neutrophils # 8.1 H (1.3-7.7) k/uL Lymphocytes # 3.1 (1.0-4.8) k/uL Monocytes # 0.6 (0-1.0) k/uL Eosinophils # 0.3 (0-0.7) k/uL Basophils # 0.1 (0-0.2) k/uL Sodium 140 (137-145) mmol/L Potassium 4.6 (3.5-5.1) mmol/L Chloride 105 (98-107) mmol/L Carbon Dioxide 26 (22-30) mmol/L Anion Gap 9 mmol/L BUN 15 (9-20) mg/dL Creatinine 1.17 (0.66-1.25) mg/dL Est GFR (CKD-EPI)AfAm 81 (>60 ml/min/1.73 sqM) Est GFR (CKD-EPI)NonAf 70 (>60 ml/min/1.73 sqM) Glucose 142 H (74-99) mg/dL Calcium 9.4 (8.4-10.2) mg/dL Total Bilirubin 0.7 (0.2-1.3) mg/dL AST 29 (17-59) U/L ALT 34 (4-49) U/L Alkaline Phosphatase 84 (38-126) U/L Total Protein 7.7 (6.3-8.2) g/dL Albumin 4.3 (3.5-5.0) g/dL Disposition Clinical Impression: Herpes zoster ophthalmicus of right eye Disposition: ADMITTED IP TO THIS HOSP
[2021-09-26] MEDS ORDERED: HYDROmorphone 1 MG/ML 1 ML SYRINGE IVP PRN (21:43)
[2021-09-26] MEDS ORDERED: HYDROcodone/APAP 5-325MG 1 EACH TAB PO PRN (21:43)
[2021-09-27] MEDS: prednisoLONE ACETATE 1% OPHTH DROPS 5 ML BTL RIGHT EYE SCH ×5 (00:22→20:57)
--- NOTE | 2021-09-27 01:33 | P.HPIM ---
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 Patient reports double vision and blurry vision denies any pain at this time he reports that shingles lesions has resolved which was involving the periorbital region of the right eye extending all the way up into the hair and scalp. He was diagnosed initially with shingles about 3 weeks ago. Per ophthalmology recommendations patient will be admitted for cycle of year and steroids Otherwise patient denies any pain denies any fevers or chills denies any trouble breathing nausea vomiting chest pain shortness of breath denies any abdominal pain changes in urinary or bowel habits He denies any similar episodes in the past denies any history of shingles Review of Systems Pertinent positives as noted in HPI. All other systems were reviewed and are negative Past Medical History Past Medical History: Asthma, Diabetes Mellitus Additional Past Medical History / Comment(s): Liver nodule found on 03/25/2014 by surgeon- still watching- see MRI done 02/2015, pt states MRI done 2014- shows cyst on lt kidney, loose stools 5-6 x a day-umbilical,hernia, Shingles 2021 History of Any Multi-Drug Resistant Organisms: None Reported Past Surgical History: Appendectomy, Hernia Repair, Orthopedic Surgery Additional Past Surgical History / Comment(s): Hernia x 2 -abdominal- states has mesh in, CTR Lt Wrist & cyst removed also, COLONOSCOPY AND EGD 04/08/15 Past Anesthesia/Blood Transfusion Reactions: Postoperative Nausea & Vomiting (PONV) Past Psychological History: No Psychological Hx Reported Smoking Status: Current every day smoker Past Alcohol Use History: Occasional Past Drug Use History: None Reported - Past Family History Father Family Medical History: Diabetes Mellitus Mother History Unknown: Yes Medications and Allergies Home Medications Medication Instructions Recorded Confirmed Type HYDROcodone/APAP 5-325MG [[place] 1 tab PO Q6H PRN MDD 4 tabs 09/14/21 09/26/21 H istory 5-325] Omeprazole [PriLOSEC] 20 mg PO DAILY 09/14/21 09/26/21 History Sildenafil Citrate [Sildenafil] 40 - 60 mg PO DAILY PRN MDD 60mg 09/14/21 09/26/21 History Gabapentin [Neurontin] 100 mg PO HS 09/26/21 09/26/21 History Allergies Allergy/AdvReac Type Severity Reaction Status Date / Time erythromycin base Allergy Nausea & Verified 09/26/21 22:02 [Erythromycin Base] Vomiting-Hives ketorolac [From Toradol] Allergy Swelling Verified 09/26/21 22:02 codeine AdvReac Nausea & Verified 09/26/21 22:02 Vomiting famciclovir AdvReac Nausea & Verified 09/26/21 22:02 Vomiting & Diarrhea levofloxacin AdvReac Nausea & Verified 09/26/21 22:02 Vomiting & Hives naproxen AdvReac Nausea & Verified 09/26/21 22:02 Vomiting Physical Exam Vitals: Vital Signs Temp Pulse Resp BP Pulse Ox 09/26/21 23:00 74 18 116/68 94 L 09/26/21 17:51 98.0 F 89 16 135/90 97 Intake and Output 09/26/21 09/26/21 09/27/21 14:59 22:59 06:59 Other: Weight 117.934 kg Constitutional: No acute distress, conversant, pleasant Eyes: Anicteric sclerae, moist conjunctiva, Pupils equal round reactive to light ENMT: NC/AT Oropharynx clear, no erythema, or exudates Neck: Supple, FROM, no masses, or JVD No carotid bruits No thyromegaly Lungs: Clear to auscultation Clear to percussion Normal respiratory effort, no accessory muscle use Cardiovascular: Heart regular in rate and rhythm, No murmurs, gallops, or rubs No peripheral edema Abdominal: Soft Nontender, no guarding, rebound or rigidity Abdomen moving with respiration Normoactive bowel sounds No hepatomegaly, No splenomegaly No palpable mass No abdominal wall hernia noted Skin: Healed shingles lesions resulting in skin discoloration over the periorbital region of the right eye otherwise Normal temperature, tone, texture, turgor Extremities: No digital cyanosis No clubbing Pedal pulses intact and symmetrical Radial pulses intact and symmetrical No calf tenderness Psychiatric: Alert and oriented to person, place and time Appropriate affect fair judgement Neuro Muscles Strength 5/5 in all 4 extremities Sensation to light touch grossly present throughout Right sixth cranial nerve palsy, otherwise Cranial nerves II-XII gross ly intact No focal sensory deficits Lymphatics: no palpable cervical or supraclavicular , or inguinal lymph nodes Results CBC & Chem 7: 09/26/21 20:36 09/26/21 20:36 Labs: Abnormal Lab Results - Last 24 Hours (Table) 09/26/21 09/26/21 Range/Units 20:36 20:36 WBC 12.3 H (3.8-10.6) k/uL Neutrophils # 8.1 H (1.3-7.7) k/uL Glucose 142 H (74-99) mg/dL Assessment and Plan Assessment: Right sixth cranial nerve palsy secondary to recent episode of shingles Management per ophthalmology recommendations with IV acyclovir and steroids Pain control Supportive care Monitor vital signs Patient denies any history of medical conditions Reports history of GERD continue with PPI Follow-up renal function patient on acyclovir DVT prophylaxis mechanical Full code Anticipated length of stay more than 2 midnights
[2021-09-27] MEDS: methylPREDNISolone SOD SUCCI 125 MG/2 ML VIAL IV SCH ×4 (03:41→20:30)
[2021-09-27] MEDS: PANTOPRAZOLE 40 MG TABLET PO SCH (06:00)
[2021-09-27] MEDS: ACYCLOVIR SODIUM 950 MG in SODIUM CHLORIDE 0.9% 250 ML IV SCH ×3 (06:25→20:56)
[2021-09-27 10:05] LABS: BUN/Creat Ratio 13.17 Ratio (12.00-20.00); Blood Urea Nitrogen 15.8 mg/dL (9.0-27.0); Calcium 9.5 mg/dL (8.7-10.3); Non-African American GFR(CKD) 68.1 (60.0-200.0); Potassium 4.7 mmol/L (3.5-5.5)
[2021-09-27 10:12] LABS: Basophils # (A) 0.01 X 10*3/uL (0.00-0.10); Basophils % (A) 0.1 %; Eosinophils # (A) 0 X 10*3/uL (0.04-0.35); Eosinophils % (A) 0 %; HCT 47.9 % (39.6-50.0); HGB 15.6 g/dL (13.0-17.0); Immature Grans, Automated 0.6 %; Lymphocytes % (A) 14.3 %; MCH 30.7 pg (27.0-32.0); MCHC 32.6 g/dL (32.0-37.0); MCV 94.3 fL (80.0-97.0); Monocytes # (A) 0.07 X 10*3/uL (0.20-1.00); Monocytes % (A) 0.8 %; NRBC Per 100 WBC 0 /100 WBCS (0.0-0.0); Neutrophils # (A) 7.06 X 10*3/uL (1.80-7.70); Neutrophils % (A) 84.2 %; Platelet Count 253 X 10*3/uL (140-440); RBC 5.08 X 10*6/uL (4.40-5.60); RDW 12.8 % (11.5-14.5); WBC 8.39 X 10*3/uL (4.50-10.00)
[2021-09-27 11:53] LABS: Glucose,Whole Blood 317 mg/dL (75-99)
[2021-09-27] MEDS: INSULIN ASPART (NovoLOG) 100 UNIT/ML VIAL SQ SCH ×3 (13:05→20:55)
[2021-09-27] MEDS ORDERED: HYDROcodone/APAP 5-325MG 1 EACH TAB PO PRN (15:27)
[2021-09-27] MEDS ORDERED: polyethylene glycoL 3350 17 GM POWD.PACK PO PRN (15:27)
--- NOTE | 2021-09-27 16:09 | P.PN ---
Subjective Progress Note Date: 09/27/21 Principal diagnosis: Blurry vision Patient was seen and examined. No acute events overnight. Patient continues to report double vision. He reports dysuria since starting acyclovir. He is also complaining that he has not had a bowel movement. He denies any chest pain, shortness breath or palpitations. No nausea or vomiting. No fever or chills. Objective - Vital Signs Vital signs: Vital Signs Temp 98.3 F 09/27/21 14:57 Pulse 94 09/27/21 14:57 Resp 18 09/27/21 14:57 BP 100/59 09/27/21 14:57 Pulse Ox 93 L 09/27/21 14:57 Intake & Output 09/26/21 09/27/21 09/27/21 18:59 06:59 18:59 Weight 117.934 kg 117.934 kg Other: Voiding Method Toilet - Exam General: [non toxic], [no distress], [appears at stated age] Derm: [warm], [dry], [shingles lesions resulting in skin discoloration over the periorbital region of the right eye] Head: [atraumatic], [normocephalic], [symmetric] Eyes: [EOMI], [no lid lag], [anicteric sclera] Mouth: [no lip lesion], [mucus membranes moist] Cardiovascular: [S1S2 reg], [no murmur] Lungs: [CTA bilateral], [no rhonchi, no rales] , [no accessory muscle use] Abdominal: [soft], [ nontender to palpation], [no guarding], [no appreciable organomegaly] Ext: [no gross muscle atrophy], [no edema], [no contractures] Neuro: [R CN 6 palsy], [no focal neuro deficits] Psych: [Alert], [oriented], [appropriate affect] - Labs CBC & Chem 7: 09/27/21 06:30 09/27/21 06:30 Labs: Abnormal Lab Results - Last 24 Hours (Table) 09/26/21 09/26/21 09/27/21 Range/Units 20:36 20:36 06:30 WBC 12.3 H (3.8-10.6) k/uL Immature Gran # 0.05 H (0.00-0.04) X 10*3/uL Neutrophils # 8.1 H (1.3-7.7) k/uL Monocytes # 0.07 L (0.20-1.00) X 10*3/uL Eosinophils # 0 L (0.04-0.35) X 10*3/uL Glucose 142 H (74-99) mg/dL POC Glucose (mg/dL) (75-99) mg/dL 09/27/21 09/27/21 Range/Units 06:30 11:52 WBC (3.8-10.6) k/uL Immature Gran # (0.00-0.04) X 10*3/uL Neutrophils # (1.3-7.7) k/uL Monocytes # (0.20-1.00) X 10*3/uL Eosinophils # (0.04-0.35) X 10*3/uL Glucose 175 H (74-99) mg/dL POC Glucose (mg/dL) 317 H (75-99) mg/dL Assessment and Plan Assessment: #Right cranial nerve palsy #Herpes zoster #Diabetes mellitus with hyperglycemia #Dysuria #Constipation Resolved: Leukocytosis Continue acyclovir and Solu-Medrol as per ophthalmology recommendations. Continue prednisolone eyedrops. Will discuss with Opthalmology duration of treatment tomorrow. Switch sliding scale to include steroids. Accu-Cheks 4 times a day with hypoglycemic precautions. Obtain urinalysis for dysuria. Milk of magnesia for constipation. DVT prophylaxis: [SCD] Discussed with: [Patient] Anticipated discharge: [2-3 days] Anticipated discharge place: [Home] A total of [35] minutes was spent on the care of this complex patient more than 50% of the time was spent in counseling and care coordination.
[2021-09-27 16:52] LABS: Glucose,Whole Blood 242 mg/dL (75-99)
[2021-09-27] MEDS: MAGNESIUM HYDROXIDE 2,400 MG/10 ML CUP PO SCH ×2 (17:34→20:57)
[2021-09-27 20:35] LABS: Glucose,Whole Blood 258 mg/dL (75-99)
[2021-09-27] MEDS ORDERED: GABAPENTIN 100 MG CAP PO SCH (21:00)
[2021-09-27 21:33] LABS: Appearance,Urine Clear (Clear); Bilirubin,Urine Negative (Negative); Blood,Urine Negative (Negative); Color,Urine Yellow; Glucose,Urine (UA) 3+ (Negative); Ketones,Urine Trace (Negative); Leukocyte Esterase,Urine Negative (Negative); Nitrite,Urine Negative (Negative); Protein,Urine Negative (Negative); Specific Gravity,Urine 1.021 (1.001-1.035); Urobilinogen,Urine <2.0 mg/dL (<2.0)
[2021-09-28] MEDS: methylPREDNISolone SOD SUCCI 125 MG/2 ML VIAL IV SCH ×2 (02:44→07:31)
[2021-09-28 03:27] LABS: Glucose,Whole Blood 210 mg/dL (75-99)
[2021-09-28 06:53] LABS: Glucose,Whole Blood 161 mg/dL (75-99)
[2021-09-28] MEDS: PANTOPRAZOLE 40 MG TABLET PO SCH (07:31)
[2021-09-28] MEDS: INSULIN ASPART (NovoLOG) 100 UNIT/ML VIAL SQ SCH ×2 (07:32→11:42)
[2021-09-28] MEDS: prednisoLONE ACETATE 1% OPHTH DROPS 5 ML BTL RIGHT EYE SCH ×2 (07:32→11:43)
[2021-09-28] MEDS: ACYCLOVIR SODIUM 950 MG in SODIUM CHLORIDE 0.9% 250 ML IV SCH (07:32)
[2021-09-28] MEDS: MAGNESIUM HYDROXIDE 2,400 MG/10 ML CUP PO SCH ×2 (07:32→11:42)
[2021-09-28 08:18] VITALS: BP 124/74; PULSE 72; RESP 16; TEMP 97.7
[2021-09-28 11:42] LABS: Glucose,Whole Blood 192 mg/dL (75-99)
--- NOTE | 2021-09-28 12:15 | P.DS ---
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 Patient reports double vision and blurry vision denies any pain at this time he reports that shingles lesions has resolved which was involving the periorbital region of the right eye extending all the way up into the hair and scalp. He was diagnosed initially with shingles about 3 weeks ago. Per ophthalmology recommendations patient will be admitted for cycle of year and steroids Otherwise patient denies any pain denies any fevers or chills denies any trouble breathing nausea vomiting chest pain shortness of breath denies any abdominal pain changes in urinary or bowel habits He denies any similar episodes in the past denies any history of shingles Patient was started on Solu-Medrol and acyclovir IV. He was also given prednisone eyedrops. He reported constipation for which she was given mag citrate and MiraLAX. He reported dysuria, urinalysis was negative for leukocyte esterase or nitrite. Patient was continuously refusing acyclovir and Solu- Medrol. He was seen and examined on 09/28/2021. Patient is requesting to be discharged home. Is advised to follow-up with his PCP within 1-2 days of discharge. Advised to follow-up with ophthalmology Dr. New within 1-2 days of discharge. All medications sent to his pharmacy. Patient verbalized understanding of the plan. This complex discharge took about 45 minutes to complete. General: [non toxic], [no distress], [appears at stated age] Derm: [warm], [dry], [shingles lesions resulting in skin discoloration over the periorbital region of the right eye] Head: [atraumatic], [normocephalic], [symmetric] Eyes: [EOMI], [no lid lag], [anicteric sclera] Mouth: [no lip lesion], [mucus membranes moist] Cardiovascular: [S1S2 reg], [no murmur] Lungs: [CTA bilateral], [no rhonchi, no rales] , [no accessory muscle use] Abdominal: [soft], [ nontender to palpation], [no guarding], [no appreciable organomegaly] Ext: [no gross muscle atrophy], [no edema], [no contractures] Neuro: [R CN 6 palsy], [no focal neuro deficits] Psych: [Alert], [oriented], [appropriate affect] Discharge Diagnosis: #Right cranial nerve palsy #Herpes zoster #Diabetes mellitus with hyperglycemia #Dysuria #Constipation Resolved: Leukocytosis Patient Condition at Discharge: Stable Plan - Discharge Summary Discharge Rx Participant: No New Discharge Prescriptions: New predniSONE See Taper PO DIRECTED #49 tab valACYclovir HCL [Valtrex] 1,000 mg PO Q8HR #42 tab prednisoLONE ACETATE 1% OPHTH [Pred Forte 1%] 1 drops RIGHT EYE QID #15 ml Continue Sildenafil Citrate 40 - 60 mg PO DAILY PRN MDD 60mg PRN Reason: 30 min prior to intercourse HYDROcodone/APAP 5-325MG [[place] 5-325] 1 tab PO Q6H PRN MDD 4 tabs PRN Reason: Pain Gabapentin [Neurontin] 100 mg PO HS Omeprazole [PriLOSEC] 20 mg PO DAILY Discharge Medication List HYDROcodone/APAP 5-325MG [[place] 5-325] 1 tab PO Q6H PRN MDD 4 tabs 09/14/21 [His tory] Omeprazole [PriLOSEC] 20 mg PO DAILY 09/14/21 [History] Sildenafil Citrate 40 - 60 mg PO DAILY PRN MDD 60mg 09/14/21 [History] Gabapentin [Neurontin] 100 mg PO HS 09/26/21 [History] predniSONE See Taper PO DIRECTED #49 tab 09/28/21 [Rx] prednisoLONE ACETATE 1% OPHTH [Pred Forte 1%] 1 drops RIGHT EYE QID #15 ml 09/28/21 [Rx] valACYclovir HCL [Valtrex] 1,000 mg PO Q8HR #42 tab 09/28/21 [Rx] Follow up Appointment(s)/Referral(s): Rolando Harris MD [Primary Care Provider] - 1-2 days Andrew New MD [STAFF PHYSICIAN] - 1-2 Days Activity/Diet/Wound Care/Special Instructions: Diet: Diabetic FU with PCP within 1-2 days of DC. FU with Opthalmology Dr. New within 1-2 days of discharge. Take all medications as advised. Discharge Disposition: HOME SELF-CARE
== END 2021-09-28 12:40 | disposition home or self-care (01) | DRG 125 ==
LOC: EC 17:48 → 5NMEDONC 22:01 → 4SSUR 09-27 02:55
PROVIDERS: ADMIT Internal Medicine; ATTEND Internal Medicine
DX: B02.30 Zoster ocular disease, unspecified (principal); H49.21 Sixth [abducent] nerve palsy, right eye; E11.65 Type 2 diabetes mellitus with hyperglycemia; D72.829 Elevated white blood cell count, unspecified; K59.00 Constipation, unspecified; R30.0 Dysuria; K21.9 Gastro-esophageal reflux disease without esophagitis; J45.909 Unspecified asthma, uncomplicated; N28.1 Cyst of kidney, acquired; K76.89 Other specified diseases of liver; F17.210 Nicotine dependence, cigarettes, uncomplicated; Z83.3 Family history of diabetes mellitus; Z88.5 Allergy status to narcotic agent; Z88.1 Allergy status to other antibiotic agents; Z87.19 Personal history of other diseases of the digestive system; Z88.8 Allergy status to other drugs, medicaments and biological substances
CPT/HCPCS: 36415; 80048; 80053; 81003; 85025; 96365; 96366; 96375; 96376; 99284

== ENCOUNTER 2022-05-01 10:33 | Day surgery (SDC) | payer OTHER ==
[~2022-05-01 10:33] MED LIST: LACTATED RINGERS 1,000 ML IV SCH; LIDOCAINE 1% (10MG/ML) FOR IV START INTRADERMA PRN
[2022-05-01 11:15] VITALS: BP 127/83; PULSE 68; RESP 18; TEMP 98
== END 2022-05-01 11:24 | disposition home or self-care (01) ==
LOC: ORWHC2ENDO 10:33
PROVIDERS: ATTEND Surgery
DX: K62.5 Hemorrhage of anus and rectum (principal)

== ENCOUNTER 2022-05-02 03:48 | Emergency (ER) | payer OTHER ==
[2022-05-02 04:05] VITALS: PULSE 76; RESP 16; TEMP 98.6
[2022-05-02 04:11] LABS: Glucose,Whole Blood 102 mg/dL (70-110)
[2022-05-02] MEDS ORDERED: ONDANSETRON 4 MG/2 ML VIAL IVP STA (04:11)
[2022-05-02] MEDS ORDERED: SODIUM CHLORIDE 0.9% 1,000 ML IV STA ×2 (04:11)
[2022-05-02] MEDS ORDERED: SODIUM CHLORIDE 0.9% 500 ML 500 ML IV STA (04:11)
[2022-05-02] MEDS ORDERED: MORPHINE SULFATE 4 MG/ML SYRINGE IVP STA (04:12)
--- NOTE | 2022-05-02 04:13 | ED ---
Nausea/Vomiting/Diarrhea HPI - General Chief complaint: Headache Stated complaint: Headache, Vomiting Time Seen by Provider: 05/02/22 04:09 Source: patient, RN notes reviewed, old records reviewed Mode of arrival: ambulatory Limitations: no limitations - History of Present Illness Initial comments: This is a 56-year-old male DF for evaluation patient Dese for evaluation regards to headache bodyaches and pains. Severe nausea vomiting and diarrhea. Patient recently going to colon prep scheduled for colonoscopy this morning. Patient states his symptoms just began to get progressively worsening starting to feel progressively worse. The second colonoscopy attempted repair for MD complaint: nausea, vomiting, diarrhea, abdominal pain, other (Headache) -: hour(s) Description of Vomiting: food contents Description of Diarrhea: water Associated Abdominal Pain: Yes Location: diffuse Radiation: none Quality: cramping, aching Consistency: constant Improves with: eating Worsens with: none Context: sick contacts Associated Symptoms: myalgias, loss of appetite, nausea/vomiting, weakness - Related Data Home Medications Medication Instructions Recorded Confirmed Omeprazole [PriLOSEC] 20 mg PO Q48H 09/14/21 04/26/22 metFORMIN HCL 500 05/01/22 Allergies Allergy/AdvReac Type Severity Reaction Status Date / Time erythromycin base Allergy Nausea & Verified 05/02/22 04:00 [Erythromycin Base] Vomiting-Hives ketorolac [From Toradol] Allergy Swelling Verified 05/02/22 04:00 codeine AdvReac Nausea & Verified 05/02/22 04:00 Vomiting famciclovir AdvReac Nausea & Verified 05/02/22 04:00 Vomiting & Diarrhea levofloxacin AdvReac Nausea & Verified 05/02/22 04:00 Vomiting & Hives naproxen AdvReac Nausea & Verified 05/02/22 04:00 Vomiting Review of Systems ROS Statement: Those systems with pertinent positive or pertinent negative responses have been documented in the HPI. ROS Other: All systems not noted in ROS Statement are negative. Past Medical History Past Medical History: Asthma, Diabetes Mellitus Additional Past Medical History / Comment(s): Liver nodule found on 03/25/2014 by surgeon- still watching- see MRI done 02/2015, pt states MRI done 2014- shows cyst on lt kidney, loose stools 5-6 x a day-umbilical,hernia, Shingles 2021 diet controlled diabetes History of Any Multi-Drug Resistant Organisms: None Reported Past Surgical History: Appendectomy, Hernia Repair, Orthopedic Surgery Additional Past Surgical History / Comment(s): Hernia x 2 -abdominal- states has mesh in, CTR Lt Wrist & cyst removed also, COLONOSCOPY AND EGD 04/08/15 rt foot surgery Past Anesthesia/Blood Transfusion Reactions: No Reported Reaction Past Psychological History: No Psychological Hx Reported Smoking Status: Current every day smoker - Past Family History Father Family Medical History: Cancer, Diabetes Mellitus Mother History Unknown: Yes General Exam Limitations: no limitations General appearance: alert, in no apparent distress Head exam: Present: atraumatic, normocephalic, normal inspection Eye exam: Present: normal appearance, PERRL, EOMI. Absent: scleral icterus, conjunctival injection, periorbital swelling ENT exam: Present: normal exam, mucous membranes moist Neck exam: Present: normal inspection. Absent: tenderness, meningismus, lymphadenopathy Respiratory exam: Present: normal lung sounds bilaterally. Absent: respiratory distress, wheezes, rales, rhonchi, stridor Cardiovascular Exam: Present: regular rate, normal rhythm, normal heart sounds. Absent: systolic murmur, diastolic murmur, rubs, gallop, clicks GI/Abdominal exam: Present: soft, normal bowel sounds. Absent: distended, tenderness, guarding, rebound, rigid Extremities exam: Present: normal inspection, full ROM, normal capillary refill. Absent: tenderness, pedal edema, joint swelling, calf tenderness Back exam: Present: normal inspection Neurological exam: Present: alert, oriented X3, CN II-XII intact Psychiatric exam: Present: normal affect, normal mood Skin exam: Present: warm, dry, intact, normal color. Absent: rash Course Vital Signs 05/02/22 05/02/22 04:00 07:02 Temperature 98.6 F Pulse Rate 76 76 Respiratory 16 16 Rate Blood Pressure 128/85 133/72 O2 Sat by Pulse 100 100 Oximetry - Reevaluation(s) Reevaluation #1: 05/02/22 05:33 Medical record is reviewed Reevaluation #2: 05/02/22 05:33 patient symptoms are improved Reevaluation #3: 05/02/22 Patient informed of results and questions answered Medical Decision Making - Medical Decision Making 56 male to the emergency department for evaluation of headache. Patient's headache is resolved here in the ER, patient feels improved and can be discharged home patient symptoms all likely related to doing colonoscopy prep. I did speak with patient's physician Dr. Paniagua was doing his colonoscopy this morning and he can be discharged home - Lab Data Result diagrams: 05/02/22 04:28 05/02/22 04:28 Lab Results 05/02/22 05/02/22 05/02/22 Range/Units 04:08 04:28 04:28 WBC 11.3 H (3.8-10.6) k/uL RBC 4.94 (4.30-5.90) m/uL Hgb 15.6 (13.0-17.5) gm/dL Hct 45.5 (39.0-53.0) % MCV 92.2 (80.0-100.0) fL MCH 31.5 (25.0-35.0) pg MCHC 34.2 (31.0-37.0) g/dL RDW 12.4 (11.5-15.5) % Plt Count 247 (150-450) k/uL MPV 8.7 Neutrophils % 59 % Lymphocytes % 30 % Monocytes % 6 % Eosinophils % 2 % Basophils % 1 % Neutrophils # 6.7 (1.3-7.7) k/uL Lymphocytes # 3.4 (1.0-4.8) k/uL Monocytes # 0.7 (0-1.0) k/uL Eosinophils # 0.3 (0-0.7) k/uL Basophils # 0.1 (0-0.2) k/uL Sodium 139 (137-145) mmol/L Potassium 3.9 (3.5-5.1) mmol/L Chloride 106 (98-107) mmol/L Carbon Dioxide 29 (22-30) mmol/L Anion Gap 4 mmol/L BUN 14 (9-20) mg/dL Creatinine 1.01 (0.66-1.25) mg/dL Est GFR (CKD-EPI)AfAm >90 (>60 ml/min/1.73 sqM) Est GFR (CKD-EPI)NonAf 84 (>60 ml/min/1.73 sqM) Glucose 103 H (74-99) mg/dL POC Glucose (mg/dL) 102 (70-110) mg/dL POC Glu [employer] Operator ID Dary Castillo Calcium 8.6 (8.4-10.2) mg/dL Phosphorus 3.1 (2.5-4.5) mg/dL Magnesium 2.6 H (1.6-2.3) mg/dL Total Bilirubin 0.7 (0.2-1.3) mg/dL AST 29 (17-59) U/L ALT 34 (4-49) U/L Alkaline Phosphatase 84 (38-126) U/L Total Protein 6.8 (6.3-8.2) g/dL Albumin 4.0 (3.5-5.0) g/dL Disposition Clinical Impression: Headache, Nausea & vomiting Disposition: HOME SELF-CARE Condition: Good Instructions (If sedation given, give patient instructions): Acute Headache (ED) Is patient prescribed a controlled substance at d/c from ED?: No Referrals: Rolando Harris MD [Primary Care Provider] - 1-2 days Time of Disposition: 07:00
[2022-05-02 04:33] LABS: Basophils # (A) 0.1 k/uL (0-0.2); Basophils % (A) 1 %; Eosinophils # (A) 0.3 k/uL (0-0.7); Eosinophils % (A) 2 %; HCT 45.5 % (39.0-53.0); HGB 15.6 gm/dL (13.0-17.5); Lymphocytes # (A) 3.4 k/uL (1.0-4.8); Lymphocytes % (A) 30 %; MCH 31.5 pg (25.0-35.0); MCHC 34.2 g/dL (31.0-37.0); MCV 92.2 fL (80.0-100.0); Mean Platelet Volume 8.7; Monocytes # (A) 0.7 k/uL (0-1.0); Monocytes % (A) 6 %; Neutrophils # (A) 6.7 k/uL (1.3-7.7); Neutrophils % (A) 59 %; Platelet Count 247 k/uL (150-450); RBC 4.94 m/uL (4.30-5.90); RDW 12.4 % (11.5-15.5); WBC 11.3 k/uL (3.8-10.6)
[2022-05-02 04:43] LABS: ALT 34 U/L (4-49); AST 29 U/L (17-59); African American GFR (CKD) >90 (>60 ml/min/1.73 sqM); Alkaline Phosphatase 84 U/L (38-126); Anion Gap 4 mmol/L; Blood Urea Nitrogen 14 mg/dL (9-20); Calcium 8.6 mg/dL (8.4-10.2); Carbon Dioxide 29 mmol/L (22-30); Chloride 106 mmol/L (98-107); Glucose 103 mg/dL (74-99); Magnesium 2.6 mg/dL (1.6-2.3); Non-African American GFR(CKD) 84 (>60 ml/min/1.73 sqM); Phosphorus 3.1 mg/dL (2.5-4.5); Potassium 3.9 mmol/L (3.5-5.1); Sodium 139 mmol/L (137-145); Total Bilirubin 0.7 mg/dL (0.2-1.3); Total Protein 6.8 g/dL (6.3-8.2)
[2022-05-02] MEDS ORDERED: diphenhydrAMINE 50 MG/ML 1 ML VIAL IVP STA (05:15)
[2022-05-02] MEDS ORDERED: PROCHLORPERAZINE INJ 10 MG/2 ML VIAL IVP STA (05:15)
[2022-05-02 07:07] VITALS: BP 133/72
== END 2022-05-02 07:07 | disposition home or self-care (01) ==
LOC: EC 03:48
DX: R51.9 Headache, unspecified (principal); R11.2 Nausea with vomiting, unspecified; J45.909 Unspecified asthma, uncomplicated; E11.9 Type 2 diabetes mellitus without complications; F17.200 Nicotine dependence, unspecified, uncomplicated; Z79.84 Long term (current) use of oral hypoglycemic drugs; Z88.1 Allergy status to other antibiotic agents; Z88.6 Allergy status to analgesic agent; Z88.8 Allergy status to other drugs, medicaments and biological substances; Z88.5 Allergy status to narcotic agent
CPT/HCPCS: 36415; 80053; 83735; 84100; 85025; 99284; J2270; J2405

== ENCOUNTER → 2023-06-22 | Outpatient (CLI) | payer MEDICARE, OTHER ==
--- NOTE | 2023-06-22 11:09 | CTL ---
EXAMINATION TYPE: CT Low Dose Lung DATE OF EXAM ORDERED: 06/22/2023 HISTORY: Tobacco use. Lung cancer screening CT DLP: 89.[address] CTDI: 2.6 mGy Automated exposure control for dose reduction was used. SCREENING VISIT: Subsequent COMPARISON: 01/16/2022 TECHNIQUE: Low dose computed tomography scan was performed through the chest at 1 mm thick sections a nd reconstructed images in the coronal plane at [address] DIAGNOSTIC QUALITY: Satisfactory FINDINGS: LUNG NODULES: None. LUNGS: COPD: Severity: None Fibrosis: Severity: None Lymph nodes: None Other findings: None RIGHT PLEURAL SPACE: Effusion: None Calcification: None Thickening: None Pneumothorax: None LEFT PLEURAL SPACE: Effusion: None Calcification: None Thickening: None Pneumothorax: None HEART: Heart Size: Normal Coronary calcification: None Pericardial effusion: None OTHER FINDINGS: Upper abdomen: Normal Bony thorax: Normal Supraclavicular region: Normal Other: Ascending thoracic aorta at the level the main pulmonary artery measures 3.3 cm. The main pul monary artery at the bifurcation measures 2.5 cm. IMPRESSION: 1. No suspicious changes to suggest primary or metastatic neoplasm. FOLLOW UP CT CHEST RECOMMENDATION: Follow-up low-dose CT chest [address] LUNG RAD: Lung-Rad 1 Negative
== END | disposition home or self-care (01) ==
LOC: RADCTMAIN 07:40
PROVIDERS: ATTEND Internal Medicine
DX: Z12.2 Encounter for screening for malignant neoplasm of respiratory organs (principal); F17.210 Nicotine dependence, cigarettes, uncomplicated
CPT/HCPCS: 71271

== ENCOUNTER → 2024-11-03 | Outpatient (CLI) | payer MEDICARE, OTHER ==
--- NOTE | 2024-11-03 14:04 | XR ---
EXAMINATION TYPE: XR chest 2V DATE OF EXAM: 11/03/2024 2:00 PM COMPARISON: Chest radiographs from 10/26/2018, CT low-dose lung 06/22/2023 TECHNIQUE: XR chest 2V Frontal and lateral views of the chest. CLINICAL INDICATION:Male, 59 years old with history of J20.9 ACUTE BRONCHITIS, UNSPECIFIED; FINDINGS: Lungs/Pleura: There is no evidence of pleural effusion, focal consolidation, or pneumothorax. Pulmonary vascularity: Unremarkable. Heart/mediastinum: Cardiomediastinal silhouette is unremarkable. Musculoskeletal: Multiple level degenerative disc disease changes seen throughout the spine. IMPRESSION: No acute cardiopulmonary disease/process. [facility], , 11/03/2024 2:02 PM
== END | disposition home or self-care (01) ==
LOC: RADXRMAIN 13:48
PROVIDERS: ATTEND Internal Medicine
DX: J20.9 Acute bronchitis, unspecified (principal)
CPT/HCPCS: 71046